=== PATIENT | female | born 1990 | race Two or more races ===

== ENCOUNTER 2016-08-20 18:07 | Emergency (ER) | payer OTHER ==
[~2016-08-20] VITALS: Ht 157.5 cm; Wt 86.2 kg
[2016-08-20 18:15] VITALS: BP 134/85
[2016-08-20] MEDS ORDERED: HYDROCODONE/APAP 10/325MG 1 EA TABLET ONE (19:07)
[2016-08-20] MEDS ORDERED: HYDROCODONE/APAP 10/325MG 1 EA TABLET PO ONE (19:30)
== END 2016-08-20 19:37 | disposition home or self-care (01) ==
LOC: ER 18:11
DX: G89.29 Other chronic pain (principal); Z88.6 Allergy status to analgesic agent
CPT/HCPCS: 99283; A4606; Z7610

== ENCOUNTER 2016-09-26 09:45 | Emergency (ER) | payer OTHER ==
[~2016-09-26] VITALS: Ht 157.5 cm; Wt 86.2 kg
--- NOTE | 2016-09-26 09:55 | NUR ---
PATIENT BIB [facility] C/O CHEST PAIN AND ANXIETY X 40 MIN AGO. PATIENT IS A/OX 4. BREATHING EVEN AND UNLABORED. NO SOB. VITALS STABLE. SAFETY AND COMFORT MEASURES IN PLACE. AWAITING MD ORDERS.
--- NOTE | 2016-09-26 10:10 | NUR ---
NEW IV STARTED LEFT AC, 18 G. BLOOD DRAWN AND SENT TO LAB.
[2016-09-26 10:12] LABS: BASOPHILS # (AUTO) 0.1 /CMM (0.0-0.2); BASOPHILS % (AUTO) 0.5 % (0.0-2.0); EOSINOPHILS # (AUTO) 0.5 /CMM (0.0-0.7); EOSINOPHILS % (AUTO) 4.5 % (0.0-6.0); HEMATOCRIT 39 % (33-45); LYMPHOCYTES # (AUTO) 2.7 /CMM (0.8-4.8); LYMPHOCYTES % (AUTO) 23.2 % (20.0-44.0); MEAN CORPUSCULAR HEMOGLOBIN 22 PG (26.0-33.0); MEAN CORPUSCULAR HGB CONC 31 g/dl (31.0-36.0); MEAN CORPUSCULAR VOLUME 71 fL (82-100); MONOCYTES # (AUTO) 0.5 /CMM (0.1-1.30); MONOCYTES % (AUTO) 4.4 % (2.0-12.0); NEUTROPHILS # (AUTO) 7.6 /CMM (1.8-8.9); NEUTROPHILS % (AUTO) 67.4 % (43.0-81.0); PLATELET COUNT (AUTO) 347 /CMM (150-450); RDW COEFFICIENT OF VARIATION 14.8 (11.5-15.0); RED BLOOD CELL COUNT(AUTO) 5.53 MIL/uL (4.0-5.2); WHITE BLOOD COUNT (AUTO) 11.4 K/uL (4.3-11.0)
[2016-09-26 10:20] LABS: CALCIUM, SERUM 8.8 mg/dL (8.5-10.1); CARBON DIOXIDE 30 mmol/L (21-32); CHLORIDE 102 mmol/L (98-107); CREATININE 0.9 mg/dL (0.6-1.3); GLUCOSE 106 mg/dL (74-106); POTASSIUM 3.6 mmol/L (3.5-5.1); SODIUM SERUM 138 mmol/L (136-145); UREA NITROGEN, BLOOD 10 mg/dL (7-18)
[2016-09-26 10:28] LABS: TROPONIN I < 0.017 ng/mL (0.00-0.056)
[2016-09-26 10:36] LABS: D-DIMER 0.88 mg/L(FEU (0.17-0.50); INR 0.96 (0.87-1.13); PROTHROMBIN TIME 10.2 SECS (9.5-12.7)
[2016-09-26] MEDS ORDERED: IV NS 0.9% 1,000 ML IV ONE (11:00)
[2016-09-26] MEDS ORDERED: IOHEXOL-350 100 ML VIAL IV ONE (11:05)
[2016-09-26] MEDS ORDERED: CT SWABBABLE VALVE TRANS SET 1 EA INFUS.SET MC ONE (11:05)
[2016-09-26] MEDS ORDERED: IV NS 0.9% 250 ML IV ONE (11:05)
[2016-09-26 13:31] VITALS: BP 93/66
--- NOTE | 2016-09-26 13:31 | NUR ---
Patient discharged to home in stable condition. Written and verbal after care instructions given. Patient verbalizes understanding of instruction.
== END 2016-09-26 13:31 | disposition home or self-care (01) ==
LOC: ER 09:47
DX: R07.89 Other chest pain (principal); F41.9 Anxiety disorder, unspecified; F17.200 Nicotine dependence, unspecified, uncomplicated; Z88.6 Allergy status to analgesic agent
CPT/HCPCS: 36415; 71010; 71275; 80048; 84484; 85025; 85378; 85730; 93005; 96360; 99285; A4606; J7030 ×2; J7050; Q9967; Z7610